=== PATIENT | female | born 1990 | race Two or more races ===

== ENCOUNTER 2016-06-19 11:06 | Emergency (ER) | payer OTHER ==
[2016-06-19] MEDS ORDERED: IBUPROFEN 100 MG TAB.CHEW ONE (11:26)
[2016-06-19] MEDS ORDERED: ACETAMINOPHEN 160 MG/5 ML ORAL.SOLN UDCUP ONE (11:26)
[2016-06-19] MEDS ORDERED: IBUPROFEN 100 MG/5 ML SYRINGE ONE (11:32)
== END 2016-06-19 11:46 | disposition home or self-care (01) ==
LOC: ED 11:06
DX: R05 Cough (principal); Q90.9 Down syndrome, unspecified
CPT/HCPCS: 99283 ×2; A9270 ×2